=== PATIENT | female | born 1980 | race Caucasian/White ===

== ENCOUNTER 2016-08-29 11:46 | Emergency (ER) | payer OTHER ==
[~2016-08-29 11:46] MED LIST: BACTRIM DS TABL1 TAB PO; CIPRO PO; FLEXERIL; FLEXERIL10 MG PO; IBUPROFEN PO; IBUPROFEN25 GM PO; KEFLEX PO; LORTAB 10-5001 EACH PO; NAPROSYN500 MG PO; NAPROXEN PO; NO MEDICATIONS; ORUDIS75 M1 DOB; ORUDIS75 M1 PO; PERCOCET PO; PYRIDIUM PO; TAMIFLU75 M1 PO; VOLTAREN75 MG PO
== END 2016-08-29 12:46 | disposition home or self-care (01) ==
LOC: SED 11:46
DX: N63 Unspecified lump in breast (principal); N64.4 Mastodynia; Z98.51 Tubal ligation status; F17.200 Nicotine dependence, unspecified, uncomplicated
CPT/HCPCS: 99282

== ENCOUNTER 2016-10-07 03:01 | Emergency (ER) | payer OTHER ==
--- NOTE | ~2016-10-07 | EKG ---
PATIENT: DAYNE FRANCE UNIT #: [id number] Ventricular Rate: 82 BPM Atrial Rate: 82 BPM P-R Interval: 134 ms QRS Duration: 86 ms Q-T Interval: 358 ms QTC Calculation(Bezet): 418 ms P Webster: 54 degrees Calculated R Webster: 74 degrees Calculated T Webster: 66 degrees Diagnosis Line: Normal sinus rhythm Diagnosis Line: Normal ECG Diagnosis Line: No previous ECGs available Diagnosis Line: Confirmed by ALIA BARRIENTOS MD ([id number]) on 10/07/2016 Diagnosis Line: 7:19:45 PM INTERPRETING MD: FLOYD NICOLAS
--- NOTE | ~2016-10-07 | CT101 ---
[facility] A Service of [facility] RADIOLOGY TEXT RESULTS PATIENT: DAYNE FRANCE LOCATION: [facility] : 78 UNIT #: [id number] AGE: [address]: WOJCIECH BARRIOS APRN SEX: F ORDER DR: [id number] [place], [place] [address] [id number] E MR#: [id number] Acc #: [id number] NAME: DAYNE FRANCE : 1980 SEX: F STUDY DATE/TIME: 10/07/2016 3:36 UNIT: [facility] ROOM: STUDY DESCRIPTION: CT Maxillofacial Area Wo Cont Attending Physician: Wojciech Barrios Aprn Ordering Physician: Wojciech Barrios Aprn Primary Care Physician: Marcos Dennis M.D. MEDICAL IMAGING REPORT This report is preliminary unless electronic signature is present EXAM CT facial bones without contrast INDICATIONS Left sided mandibular pain after an injury 30 minutes ago. PROCEDURE Unenhanced CT facial bones. This CT exam was performed with one or more of the following radiation dose reduction techniques: automatic exposure control, adjustment of mA and/or kV according to patient size, and iterative reconstruction. COMPARISON None. FINDINGS No acute facial bone fracture. Globes are intact. IMPRESSION No acute facial bone fracture. Dictated by... Soren Hernandez M.D. THIS IS AN ELECTRONICALLY VERIFIED REPORT Soren Hernandez M.D. at 10/10/2016 7:29 AM TRE/amari TD: 10/07/2016 07:03 JOB #: [id number] MEDICAL IMAGING REPORT [facility] A Service of [facility] RADIOLOGY TEXT RESULTS PATIENT: DAYNE FRANCE LOCATION: [facility] : 78 UNIT #: [id number] AGE: [address]: WOJCIECH BARRIOS APRN SEX: F ORDER DR: Page 1 of 1 COPY
== END 2016-10-07 04:26 | disposition home or self-care (01) ==
LOC: CED 03:01
DX: S00.83XA Contusion of other part of head, initial encounter (principal); H61.22 Impacted cerumen, left ear; F17.210 Nicotine dependence, cigarettes, uncomplicated; X58.XXXA Exposure to other specified factors, initial encounter; Y92.098 Other place in other non-institutional residence as the place of occurrence of the external cause
CPT/HCPCS: 70486; 84703; 93005; 99284

== ENCOUNTER 2016-11-15 19:48 | Emergency (ER) | payer OTHER ==
--- NOTE | ~2016-11-15 | CR150 ---
[facility] A Service [facility] RADIOLOGY TEXT RESULTS PATIENT: DAYNE FRANCE LOCATION: SED : 78 UNIT #: [id number] AGE: [address]: ROSA DEWITT SEX: F ORDER DR: [id number] [address] [address] [id number] E MR#: [id number] Acc #: [id number] NAME: DAYNE FRANCE : 1980 SEX: F STUDY DATE/TIME: 11/15/2016 21:35 UNIT: SED ROOM: STUDY DESCRIPTION: CR Hip Min 2 Views Lt Attending Physician: Rosa Dewitt Ordering Physician: Staff Doctor Not On Primary Care Physician: Marcos Dennis M.D. MEDICAL IMAGING REPORT This report is preliminary unless electronic signature is present. EXAM Left hip. DATE OF EXAM 11/15/2016 HISTORY Hip pain and popping sensation after stumbling today. TECHNIQUE 2 views of the hip were obtained and compared with 07/03/2016. FINDINGS 2 views of the hip again show a small calcific fragment adjacent to the superolateral aspect of the hip joint. It is unchanged from the previous exam. The hip joint space is preserved. The femoral head shows no evidence of collapse. No acute fractures are seen. The acetabulum is unremarkable. IMPRESSION 1. Small calcification again seen lateral to the superior aspect of the hip joint appearing in a similar position as on the previous examination. 2. Otherwise, negative left hip. No acute bony abnormalities are seen. Dictated by... Greg Anne M.D. THIS IS AN ELECTRONICALLY VERIFIED REPORT Greg Anne M.D. at 11/16/2016 6:21 PM RLF/charo [facility] A Service [facility] RADIOLOGY TEXT RESULTS PATIENT: DAYNE FRANCE LOCATION: SED : 78 UNIT #: [id number] AGE: [address]: ROSA DEWITT SEX: F ORDER DR: TD: 11/15/2016 22:20 JOB #: [id number] MEDICAL IMAGING REPORT Page 1 of 1
[2016-11-15] MEDS ORDERED: NO MEDICATIONS (20:11)
[2016-11-15] MEDS ORDERED: IBUPROFEN800 MG PO (22:32)
== END 2016-11-15 22:37 | disposition home or self-care (01) ==
LOC: SED 19:48
DX: S76.012A Strain of muscle, fascia and tendon of left hip, initial encounter (principal); K21.9 Gastro-esophageal reflux disease without esophagitis; Z79.899 Other long term (current) drug therapy; W18.09XA Striking against other object with subsequent fall, initial encounter; Y92.009 Unspecified place in unspecified non-institutional (private) residence as the place of occurrence of the external cause
CPT/HCPCS: 73502; 96372; 99283; J1885

== ENCOUNTER 2016-12-13 23:21 | Emergency (ER) | payer OTHER ==
--- NOTE | ~2016-12-13 | CT52 ---
[facility] A Service [facility] RADIOLOGY TEXT RESULTS PATIENT: DAYNE FRANCE LOCATION: SED : 78 UNIT #: [id number] AGE: [address]: Dario Berg MD SEX: F ORDER DR: [id number] [address] [id number] E MR#: [id number] Acc #: [id number] NAME: DAYNE FRANCE : 1980 SEX: F STUDY DATE/TIME: 12/14/2016 0:17 UNIT: SED ROOM: STUDY DESCRIPTION: CT Cervical Spine Wo Cont Attending Physician: Dario Berg M.D. Ordering Physician: Dario Berg M.D. Primary Care Physician: Marcos Dennis M.D. MEDICAL IMAGING REPORT This report is preliminary unless electronic signature is present. EXAM CT scan of the cervical spine without contrast INDICATIONS Sharp pain in left arm down into hand with finger tingling that started today. There is no comparison. TECHNIQUE Axial 2-mm images were obtained through the cervical spine then sagittal and coronal reconstructions were generated. This CT exam was performed with one or more of the following radiation dose reduction techniques: Automatic exposure control, adjustment of mA and/or kV according to patient size, and iterative reconstruction. FINDINGS Soft tissues are normal. The vertebral bodies and disc spaces have a normal appearance and normal alignment. There is no degenerative change. IMPRESSION Normal CT scan of the cervical spine without contrast. Dictated by... Timmy Goins M.D. THIS IS AN ELECTRONICALLY VERIFIED REPORT Timmy Goins M.D. at 12/14/2016 3:37 AM FEL/psc TD: 12/14/2016 02:36 JOB #: [id number] [facility] A Service [facility] RADIOLOGY TEXT RESULTS PATIENT: DAYNE FRANCE LOCATION: SED : 79 UNIT #: [id number] AGE: [address]: Dario Berg MD SEX: F ORDER DR: MEDICAL IMAGING REPORT Page 1 of 1
[~2016-12-13 23:21] MED LIST changes: +IBUPROFEN800 MG PO
[2016-12-13] MEDS ORDERED: ULTRAM PO (23:44)
[2016-12-13] MEDS ORDERED: LODINE PO (23:44)
[2016-12-13] MEDS ORDERED: SERTRALINE HCL25 M2 PO (23:44)
[2016-12-14 00:16] LABS: BASOPHIL# 0.1 X10e3 (0-0.3); BASOPHIL% 0.7 % (0-2.5); EOSINOPHIL# 0.3 X10e3 (0-0.7); EOSINOPHIL% 2.2 % (0.0-7.0); HEMATOCRIT 42.3 % (35.0-45.0); LYMPHOCYTE# 2.5 X10e3 (1.0-3.5); LYMPHOCYTE% 20.7 % (17.0-45.0); MEAN CELL VOLUME 87.9 FL (83-96); MEAN CORPUSCULAR HEMOGLOBIN 29.2 PG (28-34); MEAN CORPUSCULAR HGB CONC 33.2 g/dL (30-36); MEAN PLATELET VOLUME 9.6 FL (6.5-11.5); MONOCYTE# 0.6 X10e3 (0-1.0); MONOCYTE% 5.4 % (3.0-12.0); NEUTROPHIL# 8.6 X10e3 (1.5-7.1); PLATELET COUNT 181 X10e3 (140-420); RED BLOOD COUNT 4.81 X10e (3.90-5.30); WHITE BLOOD COUNT 12.1 X10e3 (4.0-10.5)
[2016-12-14 00:17] LABS: DIFF IND NO
[2016-12-14 00:31] LABS: ALBUMIN SERUM 3.7 g/dL (3.5-5.0); BILIRUBIN, DIRECT 0.1 mg/dL (0.0-0.2); BILIRUBIN,INDIRECT 0.3 mg/dL (0.0-0.9); BILIRUBIN,TOTAL 0.4 mg/dL (0.2-2.0); BUN/CREATININE RATIO 24.28; CALCIUM SERUM 9.1 mg/dL (8.4-10.2); CREATININE SERUM 0.7 mg/dL (0.6-1.4); GLOM FILT RATE Estimated 110.7 mL/min (>60); POTASSIUM 3.6 mmol/L (3.5-5.1); PROTEIN TOTAL SERUM 6.5 g/dL (6.0-8.3)
== END 2016-12-14 01:07 | disposition home or self-care (01) ==
LOC: SED 23:21
PROVIDERS: Emergency Medicine
DX: M54.10 Radiculopathy, site unspecified (principal); F17.200 Nicotine dependence, unspecified, uncomplicated; Z87.11 Personal history of peptic ulcer disease; Z79.899 Other long term (current) drug therapy; Z79.891 Long term (current) use of opiate analgesic
CPT/HCPCS: 36415; 72125; 80048; 80076; 85025; 99284

== ENCOUNTER 2017-01-30 22:29 | Emergency (ER) | payer OTHER ==
[~2017-01-30] VITALS: Ht 149.9 cm; Wt 46.3 kg
[~2017-01-30 22:29] MED LIST changes: +LODINE PO; +SERTRALINE HCL25 M2 PO; +ULTRAM PO
== END 2017-01-30 23:10 | disposition left against medical advice (07) ==
LOC: SED 22:29
DX: Z53.21 Procedure and treatment not carried out due to patient leaving prior to being seen by health care provider (principal)

== ENCOUNTER 2017-02-02 09:02 | Emergency (ER) | payer OTHER ==
[~2017-02-02] VITALS: Ht 152.4 cm; Wt 46.3 kg
--- NOTE | ~2017-02-02 | CR243 ---
[facility] A Service of [facility] RADIOLOGY TEXT RESULTS PATIENT: DAYNE FRANCE LOCATION: [facility] : 78 UNIT #: [id number] AGE: [address]: Arnoldo Christianson MD SEX: F ORDER DR: [id number] [facility]. [place], [place] [address] [id number] E MR#: [id number] Acc #: [id number] NAME: DAYNE FRANCE : 1980 SEX: F STUDY DATE/TIME: 02/02/2017 11:36 UNIT: [facility] ROOM: STUDY DESCRIPTION: CR Thoracic Spine 3 Views Attending Physician: Arnoldo Christianson M.D. Referring Physician: Yandel Duckworth M.D. Ordering Physician: Arnoldo Christianson M.D. Primary Care Physician: Yandel Duckworth M.D. MEDICAL IMAGING REPORT This report is preliminary unless electronic signature is present EXAM Thoracic spine series HISTORY Back pain after fall today. COMPARISON 12/05/2012 FINDINGS AP and lateral examination of the dorsal segment shows normal mineralization and a satisfactory anatomical dorsal kyphosis. All body heights, interspaces, and posterior elements are normal anatomically without any indication of malignancy, trauma, unusual paraspinal soft tissue density mass, or congenital defect. IMPRESSION Normal thoracic spine. Dictated by... Timmy Goins M.D. THIS IS AN ELECTRONICALLY VERIFIED REPORT Timmy Goins M.D. at 02/02/2017 3:31 PM FEL/lara TD: 02/02/2017 14:05 JOB #: [id number] [facility] A Service [facility] RADIOLOGY TEXT RESULTS PATIENT: DAYNE FRANCE LOCATION: [facility] : 78 UNIT #: [id number] AGE: [address]: Arnoldo Christianson MD SEX: F ORDER DR: MEDICAL IMAGING REPORT Page 1 of 1 COPY
--- NOTE | ~2017-02-02 | CR150 ---
[facility] A Service of [facility] RADIOLOGY TEXT RESULTS PATIENT: DAYNE FRANCE LOCATION: [facility] : 78 UNIT #: [id number] AGE: [address]: Arnoldo Christianson MD SEX: F ORDER DR: [id number] [facility] [address] [facility] [place], [place] [address] [id number] E MR#: [id number] Acc #: [id number] NAME: DAYNE FRANCE : 1980 SEX: F STUDY DATE/TIME: 02/02/2017 11:35 UNIT: [facility] ROOM: STUDY DESCRIPTION: CR Hip Min 2 Views Lt Attending Physician: Arnoldo hCristianson M.D. Referring Physician: Yandel Duckworth M.D. Ordering Physician: Arnoldo Christianson M.D. Primary Care Physician: Yandel Duckworth M.D. MEDICAL IMAGING REPORT This report is preliminary unless electronic signature is present EXAM Left hip 02/02/2017 HISTORY Left hip pain after falling down steps. History of left hip fracture in July of 2016. COMPARISON 11/15/2016 FINDINGS An AP view of the pelvis is obtained. There is also a lateral view of the left hip. There is no fractures visible. The bones are normal. IMPRESSION Normal AP pelvis and left hip. Dictated by... Timmy Goins M.D. THIS IS AN ELECTRONICALLY VERIFIED REPORT Timmy Goins M.D. at 02/02/2017 3:31 PM EVERT/lara TD: 02/02/2017 13:53 JOB #: [id number] MEDICAL IMAGING REPORT Page 1 of 1 COPY
--- NOTE | ~2017-02-02 | CR181 ---
[facility] A Service of [facility] RADIOLOGY TEXT RESULTS PATIENT: DAYNE FRANCE LOCATION: [facility] : 78 UNIT #: [id number] AGE: [address]: Arnoldo Christianson MD SEX: F ORDER DR: [id number] [facility] [address] [place], [place] [address] [id number] E MR#: [id number] Acc #: [id number] NAME: DAYNE FRANCE : 1980 SEX: F STUDY DATE/TIME: 02/02/2017 11:35 UNIT: [facility] ROOM: STUDY DESCRIPTION: CR Lumbar Spine 2 or 3 Views Attending Physician: Arnoldo Christianson M.D. Referring Physician: Yandel Duckworth M.D. Ordering Physician: Arnoldo Christianson M.D. Primary Care Physician: Yandel Duckworth M.D. MEDICAL IMAGING REPORT This report is preliminary unless electronic signature is present EXAM Lumbar spine, 3-view series INDICATION Pain after falling down stairs today. FINDINGS AP and lateral projections of the lumbar segment show good mineralization of both anterior and posterior elements. They are all anatomically normal without indication of fracture, dislocation, or malignant change of a sclerotic or lytic type. There is no congenital defect noted. The sacroiliac joints are normal. IMPRESSION Normal lumbar spine. Dictated by... Timmy Goins M.D. THIS IS AN ELECTRONICALLY VERIFIED REPORT Timmy Goins M.D. at 02/02/2017 3:31 PM EVERT/lara TD: 02/02/2017 14:04 JOB #: [id number] MEDICAL IMAGING REPORT Page 1 of 1 COPY
== END 2017-02-02 12:35 | disposition home or self-care (01) ==
LOC: CED 09:02
DX: S29.012A Strain of muscle and tendon of back wall of thorax, initial encounter (principal); S39.012A Strain of muscle, fascia and tendon of lower back, initial encounter; M54.32 Sciatica, left side; F17.200 Nicotine dependence, unspecified, uncomplicated; W01.0XXA Fall on same level from slipping, tripping and stumbling without subsequent striking against object, initial encounter; Y92.9 Unspecified place or not applicable; Z98.890 Other specified postprocedural states
CPT/HCPCS: 72072; 72100; 73502; 96374; 99283; J1885

== ENCOUNTER 2017-03-21 18:32 | Emergency (ER) | payer OTHER ==
[~2017-03-21] VITALS: Ht 149.9 cm; Wt 45.4 kg
[2017-03-21 19:26] LABS: INFLUENZA A NEG (NEG); INFLUENZA B NEG (NEG)
== END 2017-03-21 20:13 | disposition home or self-care (01) ==
LOC: SED 18:32
PROVIDERS: Physician Assistant
DX: J20.9 Acute bronchitis, unspecified (principal); J06.9 Acute upper respiratory infection, unspecified; F17.200 Nicotine dependence, unspecified, uncomplicated; Z79.899 Other long term (current) drug therapy
CPT/HCPCS: 87651; 87804; 94640; 99283